=== PATIENT | female | born 1960 | race Caucasian/White ===

== ENCOUNTER 2019-10-24 08:19 | Outpatient (CLI) | payer BC, SELFPAY ==
--- NOTE | ~2019-10-24 | MM_ITS ---
EXAMINATION: MM screening [facility] BI w gabriella HISTORY: Screening TECHNIQUE: Craniocaudal and mediolateral oblique 3-D tomosynthesis images were obtained and synthetic 2-D images were generated. CAD analysis was submitted and interpreted. COMPARISON: Comparison to multiple prior studies sequentially, with oldest reviewed study dated 06/2013. BREAST PARENCHYMAL COMPOSITION: There are scattered areas of fibroglandular density. FINDINGS: The right breast is stable without evidence for malignancy. There are asymmetries in the up per aspect of the left breast, slightly more prominent than prior examinations. IMPRESSION: 1. Left breast asymmetries. 2. Additional mammographic views and possible breast ultrasound are recommended. BI-RADS Category 0: Incomplete: Needs additional imaging evaluation. Reviewed, dictated and finalized at location A. IMPRESSION: 1. Left breast asymmetries. 2. Additional mammographic views and possible breast ultrasound are recommended . BI-RADS Category 0: Incomplete: Needs additional imaging evaluation.
== END 2019-10-24 08:20 | disposition home or self-care (01) ==
LOC: ANHIMG 08:24
PROVIDERS: PCP Family Medicine; Visit Provider Obstetrics & Gynecology
DX: Z12.31 Encounter for screening mammogram for malignant neoplasm of breast (principal); R92.8 Other abnormal and inconclusive findings on diagnostic imaging of breast
CPT/HCPCS: 77063; 77067

== ENCOUNTER 2019-11-16 12:25 | Outpatient (CLI) | payer BC, SELFPAY ==
--- NOTE | ~2019-11-16 | MMUS_ITS ---
EXAMINATION: MM diagnostic mammo unilat LT, US breast LT limited HISTORY: Left breast mammographic asymmetry on 10/24/2019 screening mammogram TECHNIQUE: Additional 3-D tomosynthesis images of the left breast were performed and synthetic 2-D im ages were generated. CAD analysis was submitted and interpreted. High resolution upper outer and lowe r-outer quadrant left breast ultrasound was performed. COMPARISON: 10/24/2019 bilateral digital screening mammogram 10/11/2015 bilateral digital screening mammogram FINDINGS: MAMMOGRAPHIC FINDINGS: No reproducible mass is detected. No significant new or developing density or other significant canseco e since 09/27/2015 is evident. ULTRASOUND: No solid mass lesion or shadowing mass lesion is evident. IMPRESSION: 1. No mammographic evidence of malignancy 2. Routine mammographic screening in one year is recommended. BI-RADS Category 1: Negative Reviewed, dictated and finalized at location A. IMPRESSION: 1. No mammographic evidence of malignancy 2. Routine mammographic screening in one year is recommended. BI-RADS Category 1: Negative
== END 2019-11-16 12:26 | disposition home or self-care (01) ==
PROVIDERS: PCP Family Medicine; Visit Provider Obstetrics & Gynecology
DX: R92.8 Other abnormal and inconclusive findings on diagnostic imaging of breast (principal)
CPT/HCPCS: 76642; 77065

== ENCOUNTER → 2020-11-07 13:49 | Outpatient (CLI) | payer BC, SELFPAY ==
--- NOTE | ~2020-11-07 | XR_ITS ---
XR ankle LT min 3V DATE: 11/07/2020 14:11 INDICATION: Left ankle and foot pain TECHNIQUE: 4 views COMPARISON: None FINDINGS: There is mild soft tissue swelling. No fracture or dislocation of the ankle or disruption o f the ankle mortise. No periosteal reaction or bone destruction. IMPRESSION: Mild soft tissue swelling Reviewed, dictated and finalized at location A. IMPRESSION: Mild soft tissue swelling
== END ==
PROVIDERS: PCP Family Medicine; Visit Provider Physician Assistant
DX: M25.579 Pain in unspecified ankle and joints of unspecified foot (principal); M79.89 Other specified soft tissue disorders
CPT/HCPCS: 73610

== ENCOUNTER 2021-05-06 07:43 | Outpatient (CLI) | payer BC, SELFPAY ==
--- NOTE | ~2021-05-06 | MM_ITS ---
EXAMINATION: MM screening [facility] BI w gabriella HISTORY: Screening mammogram TECHNIQUE: Craniocaudal and mediolateral oblique 3-D tomosynthesis images were obtained and synthetic 2-D images were generated. CAD analysis was submitted and interpreted. COMPARISON: 11/16/2019, 10/24/2019, 03/08/2018 BREAST PARENCHYMAL COMPOSITION: There are scattered areas of fibroglandular density. FINDINGS: There is no evidence of suspicious mass, calcification, or architectural distortion to sugg est malignancy in either breast. There has been no suspicious interval change. IMPRESSION: 1. No mammographic evidence of malignancy. 2. Recommend routine screening mammography in one year. BI-RADS Category 2: Benign finding(s). Reviewed, dictated and finalized at location A.
== END 2021-05-06 07:44 | disposition home or self-care (01) ==
LOC: ANHIMG 07:46
PROVIDERS: PCP Family Medicine; Visit Provider Family Medicine
DX: Z12.31 Encounter for screening mammogram for malignant neoplasm of breast (principal)
CPT/HCPCS: 77063; 77067

== ENCOUNTER 2022-01-28 08:32 | Outpatient (CLI) | payer BC, SELFPAY ==
[2022-01-28 11:54] LABS: Kit Draw Collected
== END 2022-01-28 08:33 | disposition home or self-care (01) ==
PROVIDERS: PCP Family Medicine; Visit Provider Physician Assistant
DX: Z51.81 Encounter for therapeutic drug level monitoring (principal); Z79.899 Other long term (current) drug therapy; E78.2 Mixed hyperlipidemia; F34.1 Dysthymic disorder; M18.12 Unilateral primary osteoarthritis of first carpometacarpal joint, left hand
CPT/HCPCS: 36415

== ENCOUNTER 2022-04-23 13:28 | Outpatient (CLI) | payer BC, SELFPAY ==
--- NOTE | ~2022-04-23 | MMUS_ITS ---
EXAMINATION: MM diagnostic darren BI w gabriella, US breast LT limited HISTORY: Left breast pain from medial breast to left nipple. TECHNIQUE: ML, MLO and CC 3-D tomosynthesis images of both breasts were performed and synthetic 2-D i mages were generated. CAD analysis was submitted and interpreted. High resolution targeted left breas t ultrasound examination at area of clinical complaint was performed. COMPARISON: 05/06/2021 bilateral screening mammogram 11/12/2019 diagnostic left mammogram and limited left breast ultrasound examination 10/24/2019, 03/08/2018 bilateral screening mammogram examinations BREAST PARENCHYMAL COMPOSITION: There are scattered areas of fibroglandular density. FINDINGS: MAMMOGRAPHIC FINDINGS: No suspicious mass or architectural distortion, malignant calcification, skin thickening or retractio n or significant new or developing density is detected. ULTRASOUND: Ultrasound imaging at the area of clinical complaint at 7:00, 8:00, 9:00 and subareolar areas reveals no suspicious mass, shadowing, cyst or other significant sonographic abnormality. IMPRESSION: 1. No mammographic evidence of malignancy 2. Routine annual mammographic screening is recommended. BI-RADS Category 1: Negative Reviewed, dictated and finalized at location A. [employer] TALENT ACQUISITION IMPRESSION: 1. No mammographic evidence of malignancy 2. Routine annual mammographic screening is recommended. BI-RADS Category 1: Negative
== END 2022-04-23 13:29 | disposition home or self-care (01) ==
PROVIDERS: PCP Family Medicine; Visit Provider Family Medicine
DX: Z12.31 Encounter for screening mammogram for malignant neoplasm of breast (principal); N64.4 Mastodynia
CPT/HCPCS: 76642; 77062; 77066; G0279

== ENCOUNTER 2022-05-01 20:05 | Emergency (ER) | payer BC, SELFPAY ==
--- NOTE | ~2022-05-01 | CT_ITS ---
EXAMINATION: CT abdomen pelvis w con DATE: 05/01/2022 21:15 INDICATION: Umbilical pain, nausea, vomiting and bloating. TECHNIQUE: Computed tomography (CT) of the abdomen and pelvis was performed with 100 mL Omnipaque-350 intravenous contrast. Automated exposure control and iterative reconstruction technique were employe d. The dose-length product was 357.65 mGy-cm. COMPARISON: 09/19/2018 FINDINGS: Mild dependent atelectasis in the bilateral lower lobes. Heart size is normal. No pericardial or pleu ral effusion. There is prominent edematous wall thickening in the distal esophagus suggestive of esop hagitis which could be related to provided history of vomiting. Common bile duct is dilated to 10 mm and there is chronic mild intrahepatic biliary ductal dilation without evident obstructing stone or m ass in this likely related to prior cholecystectomy with surgical clips at the gallbladder fossa. Umu er is otherwise normal. Spleen, pancreas, bilateral adrenal glands and left kidney are normal. 8 mm c yst at the upper pole of the right kidney. Intestinal malrotation with the colon confined to the left side of the abdomen and pelvis and the small bowel in right central and right side of the abdomen an d pelvis. There is fluid throughout multiple loops of the proximal to mid small bowel without louis d ilation. There is gradual transition to relatively decompressed more distal small bowel with no trans ition point to suggest obstruction. No bowel wall thickening. There are scattered diverticula along t he colon without adjacent from pursuing to suggest diverticulitis. The appendix is not visualized and may be surgically absent with surgical clip near the cecum. No pericecal inflammatory change to sugg est acute appendicitis. Bladder is normal. The uterus is not identified and has likely been surgicall y resected. Minimal scattered ascites primarily the right lower quadrant and pelvis. No abscess or fr ee intraperitoneal gas. No pathologically enlarged abdominal or pelvic lymphadenopathy. Moderate lumb ar spondylosis. IMPRESSION: 1. Fluid-filled but not frankly dilated small bowel with small amount of likely reactive ascites sugg estive of an enteritis. 2. Likely congenital bowel malrotation. No obstruction. 3. Edematous wall thickening in the distal esophagus suggestive of esophagitis or potentially related to reported history of vomiting. Reviewed, dictated and finalized at location A. L [employer] IMPRESSION: 1. Fluid-filled but not frankly dilated small bowel with small amount of likely reactive ascites suggestive of an enteritis. 2. Likely congenital bowel malrotation. No obstruction. 3. Edematous wall thickening in the distal esophagus suggestive of esophagitis or potentially related to reported history of vomiting.
[2022-05-01 20:07] VITALS: BP 150/88; PULSE 101; RESP 20; TEMP 36.4; O2SAT 100
--- NOTE | 2022-05-01 20:18 | ECG_ITS ---
Measurements Intervals [place] Rate: 97 P: 25 SD: 154 QRS: -18 QRSD: 96 T: 29 QT: 349 QTc: 445 Interpretive Statements SINUS RHYTHM POSSIBLE LEFT ATRIAL ENLARGEMENT DELAYED PRECORDIAL R/S TRANSITION BORDERLINE T WAVE ABNORMALITY- ANTERIOR LEADS BORDERLINE ECG COMPARED TO ECG 05/27/2018 10:34:20 NO SIGNIFICANT CHANGES Electronically Signed On 05-01-2022 21:04:19 DANDY OPERATOR by Butch Koenig D.O.
[2022-05-01 20:32] LABS: Basophils Absolute Auto 0.1 K/mm3 (0.0-0.1); Basophils Percent Auto 0.7 % (0.2-1.2); Eosinophils Absolute Auto 0.2 K/mm3 (0-0.3); Eosinophils Percent Auto 1.8 % (0-4.4); Hematocrit 42.5 % (37.0-47.0); Hemoglobin 14.3 g/dL (12.0-15.0); Immature Granulocyte Absolute 0.04 K/mm3 (0.00-0.031); Immature Granulocyte Percent A 0.4 % (0-0.5); Lymphocytes Absolute Auto 2.04 K/mm3 (0.9-3.2); Mean Corpuscular HGB Conc 33.6 g/dl (32-36); Mean Corpuscular Hemoglobin 31.7 pg (26-34); Mean Corpuscular Volume 94.2 fl (80-100); Mean Platelet Volume 9.1 fl (7.4-10.4); Monocytes Absolute Auto 0.7 K/mm3 (0.1-0.6); Monocytes Percent Auto 6.8 % (2.6-8.5); Neutrophils Absolute Auto 7.7 K/mm3 (1.3-6.7); Neutrophils Percent Auto 71.3 % (45.5-73.1); Platelet Count Result 316 k/mm3 (150-375); Red Blood Count 4.51 M/mm3 (4.2-5.4); Red Cell Distribution Width 11.9 % (11.5-14.5); White Blood Count 10.7 K/mm3 (4.5-10.0)
[2022-05-01] MEDS: SODIUM CHLORIDE 0.9% IV 1,000 ML 999 ML IV CONT (20:46)
[2022-05-01] MEDS: PANTOPRAZOLE SODIUM IV 40 MG VIAL IV PUSH (20:46)
[2022-05-01] MEDS: ONDANSETRON INJ 4 MG/2 ML VIAL IV PUSH (20:47)
[2022-05-01 20:55] LABS: Alanine Aminotransferase 23 U/L (6-35); Albumin Level 5.3 g/dL (3.5-5.1); Alkaline Phosphatase 66 U/L (38-126); Anion Gap 10 mmol/L (8-16); Aspartate Amino Transferase 32 U/L (14-36); Bilirubin,Total 0.7 mg/dL (0.2-1.3); Blood Urea Nitrogen 14 mg/dL (7-17); Calcium 10.3 mg/dL (8.4-10.2); Carbon Dioxide 27 mmol/L (22-30); Chloride 98 mmol/L (98-107); Estimated CRCL calculation 93 ml/min; Estimated Glomerular Filt Rate > 60; Glucose 118 mg/dL (65-110); Lipase 50 U/L (23-300); Potassium 3.7 mmol/L (3.4-5.0); Sodium 135 mmol/L (137-145)
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
[2022-05-01 22:25] LABS: Appearance Urine Clear (Clear); Bilirubin Urine Negative (Negative); Blood Urine Negative (Negative); Color Urine Yellow (Yellow); Glucose Urine UA Negative (Negative); Ketones Urine 1+ mg/dL (Negative); Leukocyte Esterase Ur Negative LEU/UL (Negative); Nitrate Urine Negative (Negative); Protein Urine Negative (Negative); Urobilinogen Urine 0.2 mg/dL (<2.0)
[2022-05-01 22:53] LABS: Specific Grav Ur 1.081 (1.001-1.035)
[2022-05-01 22:57] LABS: Add Urine Microscopic? YES
[2022-05-01] MEDS: DICYCLOMINE HCL INJ 20 MG/2 ML VIAL IM (23:53)
[2022-05-02 02:40] VITALS: BP 141/77; PULSE 77; RESP 16; O2SAT 98
== END 2022-05-02 02:45 | disposition home or self-care (01) ==
PROVIDERS: Emergency Provider Emergency Medicine; PCP Family Medicine
DX: K52.9 Noninfective gastroenteritis and colitis, unspecified (principal)
CPT/HCPCS: 36415; 74177; 80053; 81001; 83690; 85025; 93005; 96361; 96372; 96374; 96375; 99283; C9113; J0500; J2405; J7030; Q9967

== ENCOUNTER 2022-05-05 12:30 | Outpatient (CLI) | payer BC, SELFPAY ==
--- NOTE | ~2022-05-05 | XR_ITS ---
EXAMINATION: XR abdomen/kub 1V DATE: 05/05/2022 13:07 INDICATION: Nonobstructive gastroenteritis and colitis TECHNIQUE: A supine view of the abdomen on 2 radiographs was obtained. COMPARISON: CT dated 05/01/2022 FINDINGS: Moderate amount of colonic stool in the left abdomen. Small amount of gas within a few loops of small bowel in the right abdomen. The pattern of bowel redemonstrates a congenital bowel malrotation as se en on the prior CT. No evident haustral fold thickening, pneumatosis or portal venous gas. Cholecyste ctomy clips in right upper quadrant and likely dropped clip in the central pelvis. Lung bases are holland ar. Heart size is normal. IMPRESSION: 1. No dilated bowel to suggest obstruction. Reviewed, dictated and finalized at location L.
[2022-05-05 13:18] LABS: Hematocrit 38.2 % (37.0-47.0); Hemoglobin 12.8 g/dL (12.0-15.0); Mean Corpuscular HGB Conc 33.5 g/dl (32-36); Mean Corpuscular Hemoglobin 31.2 pg (26-34); Mean Corpuscular Volume 93.2 fl (80-100); Mean Platelet Volume 9.3 fl (7.4-10.4); Platelet Count Result 320 k/mm3 (150-375); Red Cell Distribution Width 11.7 % (11.5-14.5); White Blood Count 4.7 K/mm3 (4.5-10.0)
[2022-05-05 13:34] LABS: CRP < 0.5 mg/dL (<1.0)
[2022-05-05 13:49] LABS: Erythrocyte Sedimentation Rate 16 mm/hr (0-20)
[2022-05-09 11:53] LABS: Tissue Transglutaminase IgG Ab <1.0 U/mL (<15.0)
[2022-05-09 13:33] LABS: Tissue Transglutaminase IgA Ab <1.0 U/mL (<15.0)
== END 2022-05-05 12:31 | disposition home or self-care (01) ==
PROVIDERS: PCP Family Medicine; Visit Provider Nurse Practitioner
DX: K52.9 Noninfective gastroenteritis and colitis, unspecified (principal); R10.9 Unspecified abdominal pain; R93.3 Abnormal findings on diagnostic imaging of other parts of digestive tract
CPT/HCPCS: 36415; 74018; 83516; 85027; 85652; 86140

== ENCOUNTER 2022-06-16 01:51 | Day surgery (SDC) | payer BC, SELFPAY ==
[2022-06-08 14:53] VITALS: BMI 23.5
[2022-06-16 07:27] VITALS: BP 129/80; PULSE 86; RESP 19; TEMP 36.3; O2SAT 99
[2022-06-16] MEDS: LACTATED RINGERS 1,000 ML 150 ML IV CONT (07:47)
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
--- NOTE | 2022-06-16 08:40 | SUR.OPER ---
EGD began at 826. Colonoscopy began at 08.
[2022-06-16 09:17] VITALS: BP 149/73; PULSE 77; RESP 21; O2SAT 95
[2022-06-16 09:27] VITALS: BP 139/90; PULSE 73; RESP 16; O2SAT 97
[2022-06-16 09:37] VITALS: BP 138/84; PULSE 64; RESP 21; O2SAT 98
== END 2022-06-16 09:54 | disposition home or self-care (01) ==
PROVIDERS: PCP Family Medicine; Visit Provider Internal Medicine Gastroenterology
PROC: 0DJ08ZZ Inspection of Upper Intestinal Tract, Via Natural or Artificial Opening Endoscopic (ICD-10-PCS; CPT 43235; principal; 2022-06-16 08:30)
DX: K57.30 Diverticulosis of large intestine without perforation or abscess without bleeding (principal); K64.8 Other hemorrhoids; R14.0 Abdominal distension (gaseous); R10.84 Generalized abdominal pain; K21.9 Gastro-esophageal reflux disease without esophagitis; Z87.19 Personal history of other diseases of the digestive system; Z87.891 Personal history of nicotine dependence
CPT/HCPCS: 45330; 43239; 88305; J2704; J7120

== ENCOUNTER 2023-04-29 14:47 | Outpatient (CLI) | payer BC, SELFPAY ==
--- NOTE | ~2023-04-29 | MM_ITS ---
EXAMINATION: MM screening [facility] BI w gabriella HISTORY: Screening mammogram TECHNIQUE: Craniocaudal and mediolateral oblique 3-D tomosynthesis images were obtained and synthetic 2-D images were generated. CAD analysis was submitted and interpreted. COMPARISON: 04/23/2022 diagnostic bilateral mammogram and limited left breast ultrasound examination 05/06/2021 bilateral screening mammogram BREAST PARENCHYMAL COMPOSITION: There are scattered areas of fibroglandular density. FINDINGS: There is no evidence of suspicious mass, calcification, or architectural distortion to sugg est malignancy in either breast. There has been no suspicious interval change. IMPRESSION: 1. No mammographic evidence of malignancy. 2. Recommend routine screening mammography in one year. BI-RADS Category 1: Negative Reviewed, dictated and finalized at location A. [employer]ING ASSISTANT
== END 2023-04-29 14:48 | disposition home or self-care (01) ==
PROVIDERS: PCP Family Medicine; Visit Provider Family Medicine
DX: Z12.31 Encounter for screening mammogram for malignant neoplasm of breast (principal)
CPT/HCPCS: 77063; 77067

== ENCOUNTER 2023-06-11 08:13 | Outpatient (CLI) | payer BC, SELFPAY ==
[2023-06-11 19:25] LABS: Alanine Aminotransferase 19 U/L (6-35); Albumin Level 4.6 g/dL (3.5-5.1); Alkaline Phosphatase 53 U/L (38-126); Anion Gap 4 mmol/L (4-12); Aspartate Amino Transferase 45 U/L (14-36); Bilirubin,Total 0.4 mg/dL (0.2-1.3); Blood Urea Nitrogen 16 mg/dL (7-17); Calcium 9.5 mg/dL (8.4-10.2); Carbon Dioxide 30 mmol/L (22-30); Chloride 103 mmol/L (98-107); Cholesterol 238 mg/dL (0-200); Estimated Glomerular Filt Rate > 60; Glucose 82 mg/dL (65-110); HDL Direct 75 mg/dL; Potassium 4.6 mmol/L (3.4-5.0); Sodium 137 mmol/L (137-145); Triglycerides 93 mg/dL (<150)
[2023-06-11 19:32] LABS: Basophils Absolute Auto 0.1 K/mm3 (0.0-0.1); Basophils Percent Auto 1.1 % (0.2-1.2); Eosinophils Absolute Auto 0.2 K/mm3 (0-0.3); Eosinophils Percent Auto 3.7 % (0-4.4); Hematocrit 43.9 % (37.0-47.0); Immature Granulocyte Absolute 0.01 K/mm3 (0.00-0.031); Immature Granulocyte Percent A 0.2 % (0-0.5); Lymphocytes Absolute Auto 1.36 K/mm3 (0.9-3.2); Lymphocytes Percent Auto 25.2 % (18.3-44.2); Mean Corpuscular HGB Conc 31.9 g/dl (32-36); Mean Corpuscular Hemoglobin 31.6 pg (26-34); Mean Corpuscular Volume 99.1 fl (80-100); Mean Platelet Volume 9.8 fl (7.4-10.4); Monocytes Absolute Auto 0.5 K/mm3 (0.1-0.6); Monocytes Percent Auto 9.6 % (2.6-8.5); Neutrophils Absolute Auto 3.3 K/mm3 (1.3-6.7); Neutrophils Percent Auto 60.2 % (45.5-73.1); Platelet Count Result 336 k/mm3 (150-375); Red Blood Count 4.43 M/mm3 (4.2-5.4); Red Cell Distribution Width 11.9 % (11.5-14.5); White Blood Count 5.4 K/mm3 (4.5-10.0)
[2023-06-11 19:35] LABS: LDL Cholesterol Direct 125 mg/dL
== END 2023-06-11 08:14 | disposition home or self-care (01) ==
LOC: ANHGOSHLAB 08:15
PROVIDERS: PCP Family Medicine; Visit Provider Family Medicine
DX: E78.5 Hyperlipidemia, unspecified (principal)
CPT/HCPCS: 36415; 80053; 80061; 85025

== ENCOUNTER 2023-06-22 08:37 | Outpatient (CLI) | payer BC, SELFPAY ==
--- NOTE | ~2023-06-22 | CT_ITS ---
CT of the Abdomen and Pelvis: Indication: Abdominal pain, incomplete colonoscopy Technique: 2.5 mm axial scans were obtained through the abdomen and pelvis following intravenous adm inistration of 100 cc of Omnipaque 350. Dose reduction technique was used on this scan by utilizing a utomated exposure control and iterative reconstruction technique. The dose-length product (DLP) was 2 69.07 mGy-cm. COMPARISON: 05/01/2022 Findings: Scans through the lung bases are unremarkable. The liver, spleen, pancreas, adrenals and kidneys are within normal limits. Cholecystectomy clips are present. No evidence of aortic aneurysm. No lymphadenopathy. No bowel obstruction or bowel wall thickening. Congenital malrotation of bowel noted. No acute inflam matory process seen. Prominent stool suggests constipation. Images through the pelvis were performed. Urinary bladder unremarkable. No pelvic mass seen. No ascit es. Impression: No acute abnormality seen. Congenital malrotation of bowel, with large bowel on the left side of the abdomen, small bowel on the right side, and abnormally positioned ligament of Treitz. Constipation. Reviewed, dictated and finalized at location . Impression: No acute abnormality seen. Congenital malrotation of bowel, with large bowel on the left side of the abdom en, small bowel on the right side, and abnormally positioned ligament of Treitz . Constipation.
== END 2023-06-22 08:38 | disposition home or self-care (01) ==
LOC: ANHIMG 08:41
PROVIDERS: PCP Family Medicine; Visit Provider Nurse Practitioner
DX: R14.0 Abdominal distension (gaseous) (principal); R10.11 Right upper quadrant pain; K59.00 Constipation, unspecified
CPT/HCPCS: 74177; Q9967

== ENCOUNTER 2023-07-08 07:55 | Outpatient (CLI) | payer BC, SELFPAY ==
--- NOTE | ~2023-07-08 | XR_ITS ---
EXAMINATION: XR_ENEMABAC_CR DATE: 07/08/2023 09:59 INDICATION: Right upper quadrant abdominal pain. Incomplete colonoscopy. TECHNIQUE: A inorganic chemistry professor radiograph was obtained. A catheter was inserted into the patient's rectum. Contra st was infused by gravity. Gas was infused by hand pump. Fluoroscopic spot images and conventional ra diographs were obtained. Fluoroscopy exposure time was 4.4 minutes. A total of 59 fluoroscopic spot i mages and 13 overhead radiographs were obtained. Total DAP was 77.237 mGycm^2 COMPARISON: None. FINDINGS: Bowel malrotation with the colon confined to the pelvis and left abdomen. There is a tortuous course of the colon in the left abdomen which was longer than anticipated resulting resulting in the proxima lmost segment of colon remaining unopacified with contrast despite significant amount of residual con trast remaining within the mid colon. The amount of residual contrast and superimposition of multiple loops of colon mildly decreases sensitivity. There is mild scattered diverticulosis along the colon. No evident strictures, masses/polyps or other mucosal irregularities identified. Cholecystectomy cli ps in right upper quadrant. Dropped clip in the pelvis. IMPRESSION: 1. Bowel malrotation with the colon confined to the pelvis and left abdomen which along with tortuosi ty of the course of colon results in retention of a greater than optimal amount of contrast within th e mid to distal colon despite there being insufficient contrast to completely opacified the proximal most colon. 2. Multiple diverticula without evidence of strictures, polyps, mass or other mucosal irregularities in the distal three fourths of the colon. Reviewed, dictated and finalized at location A. IMPRESSION: 1. Bowel malrotation with the colon confined to the pelvis and left abdomen whi ch along with tortuosity of the course of colon results in retention of a great er than optimal amount of contrast within the mid to distal colon despite there being insufficient contrast to completely opacified the proximal most colon. 2. Multiple diverticula without evidence of strictures, polyps, mass or other m ucosal irregularities in the distal three fourths of the colon.
== END 2023-07-08 07:56 | disposition home or self-care (01) ==
PROVIDERS: PCP Family Medicine; Visit Provider Nurse Practitioner
DX: R10.11 Right upper quadrant pain (principal); R14.0 Abdominal distension (gaseous)
CPT/HCPCS: 74280

== ENCOUNTER 2023-08-09 08:11 | Outpatient (CLI) | payer BC, SELFPAY ==
[2023-08-09 13:42] LABS: Alanine Aminotransferase 26 U/L (6-35); Albumin Level 4.5 g/dL (3.5-5.1); Alkaline Phosphatase 60 U/L (38-126); Aspartate Amino Transferase 60 U/L (14-36); Bilirubin,Total 0.9 mg/dL (0.2-1.3)
[2023-08-09 14:34] LABS: Hepatitis B Surface Antigen Negative (Negative)
[2023-08-09 14:40] LABS: HAV RESULT Negative (Negative); Hepatitis B Core IgM Result Negative (Negative)
[2023-08-09 14:51] LABS: Hepatitis C Virus Antibody Negative (Negative)
== END 2023-08-09 08:12 | disposition home or self-care (01) ==
LOC: ANHGOSHLAB 08:12
PROVIDERS: PCP Family Medicine; Visit Provider Family Medicine
DX: R10.11 Right upper quadrant pain (principal); R10.9 Unspecified abdominal pain; R74.8 Abnormal levels of other serum enzymes
CPT/HCPCS: 36415; 80074; 80076

== ENCOUNTER 2023-08-11 14:16 | Outpatient (CLI) | payer BC, SELFPAY ==
[2023-08-11 14:56] LABS: INR 0.9; Prothrombin Time 12.3 Seconds (11.1-14.7)
[2023-08-11 16:11] LABS: Hepatitis B Surface Antigen Negative (Negative)
[2023-08-11 16:17] LABS: HAV RESULT Negative (Negative); Hepatitis B Core IgM Result Negative (Negative)
[2023-08-11 16:29] LABS: Hepatitis C Virus Antibody Negative (Negative)
[2023-08-11 17:56] LABS: Iron 123 ug/dL (37-170)
[2023-08-11 18:05] LABS: Percent Iron Saturation 44 % (20-50)
[2023-08-12 11:53] LABS: Alpha-1-Antitrypsin, QN 134 mg/dL (83-199)
[2023-08-16 07:22] LABS: GGT 30
[2023-08-16 11:29] LABS: Alpha Fetoprotein Tumor Marker 10.7
[2023-08-17 22:59] LABS: LKM 1 Antibody <=20.0 U (<=20.0)
[2023-08-18 22:02] LABS: Actin Antibody (IgG) <20 U (<20)
[2023-08-23 15:24] LABS: Mitochondrial (M2) Ab (IgG) <20.0 U
[2023-08-31 07:33] LABS: Fibrosis Score 0.09; Fibrosis Stage F0; GGT 30; Haptoglobin 88
[2023-08-31 07:34] LABS: ALT 19; Alpha-2-Macroglobulin 141; Apolipoprotein A1 166; Necroinflammat Act Grade A0; Total Bilirubin 0.3
== END 2023-08-11 14:17 | disposition home or self-care (01) ==
LOC: ANHLAB 14:18
PROVIDERS: PCP Family Medicine; Visit Provider Nurse Practitioner
DX: R74.01 Elevation of levels of liver transaminase levels (principal); K74.60 Unspecified cirrhosis of liver
CPT/HCPCS: 36415; 80074; 81596; 82103; 82105; 82728; 82977; 83520; 83540; 83550; 85610; 86038; 86039; 86364; 86376

== ENCOUNTER 2023-08-18 09:18 | Outpatient (CLI) | payer BC, SELFPAY ==
--- NOTE | ~2023-08-18 | US_ITS ---
EXAMINATION: US abdomen limited DATE: 08/18/2023 09:50 INDICATION: Elevation of levels of liver transaminases. TECHNIQUE: Multiple grayscale and Doppler ultrasound images of the abdomen were obtained. COMPARISON: CT abdomen and pelvis 06/22/2023 FINDINGS: The visualized portions of the head, body, and tail of the pancreas are normal. The liver i s normal without focal lesion. No liver surface nodularity. There is normal flow in main portal vein. The gallbladder is absent. The common duct is normal and measures 10 mm. IMPRESSION: 1. Normal right upper quadrant ultrasound status post cholecystectomy. Reviewed, dictated and finalized at location A.
== END 2023-08-18 09:19 ==
LOC: MICIMG 09:21
PROVIDERS: PCP Family Medicine; Visit Provider Nurse Practitioner
DX: R74.01 Elevation of levels of liver transaminase levels (principal)
CPT/HCPCS: 76705

== ENCOUNTER 2023-09-13 06:40 | Outpatient (CLI) | payer BC, SELFPAY ==
--- NOTE | ~2023-09-13 | MR_ITS ---
EXAMINATION: MR abdomen wo/w con DATE: 09/13/2023 07:42 INDICATION: Elevated AFP. TECHNIQUE: Magnetic resonance imaging (MRI) of the abdomen was performed without and with 14 mL Multi nena intravenous contrast. Sequences included coronal T2-weighted SS-FSE, coronal and axial FS 2D-F IESTA, axial STIR FSE, axial T2-weighted SS-FSE, axial T2-weighted FS SS-FSE, axial diffusion-weighte d SE, axial dual-echo T1-weighted FSPGR, and axial and coronal T1-weighted LAVA. Postcontrast axial T 1-weighted LAVA images were obtained in a time course. Postcontrast coronal T1-weighted LAVA images w ere obtained. COMPARISON: None. FINDINGS: Mild discoid atelectasis at the lingula. Heart size is normal. No pericardial or pleural effusion. Co mmon bile duct is mildly dilated to 8 mm which is within normal limits post cholecystectomy with susc eptibility artifact associated with cholecystectomy clips at the gallbladder fossa. Minimal central i ntrahepatic biliary ductal dilation also likely related to prior cholecystectomy. No hepatic parenchy mal lesions identified. Pancreas, spleen, bilateral adrenal glands and left kidney are normal. 8 mm c yst in the upper pole the right kidney. Again there is intestinal malrotation with the colon in the l eft abdomen and the small bowel in the right abdomen. There is suggestion of a likely colonic diverti culosis but without adjacent from trace stranding to suggest diverticulitis. Midline surgical scar al hope the anterior abdominal wall. No pathologically enlarged abdominal or upper pelvic lymphadenopathy . T1 hyperintense fat saturating hemangioma at T11. IMPRESSION: 1. Normal intra and extra hepatic biliary ductal dilation likely related to prior cholecystectomy. No hepatic parenchymal lesions identified. 2. Likely congenital intestinal malrotation. Reviewed, dictated and finalized at location A. IMPRESSION: 1. Normal intra and extra hepatic biliary ductal dilation likely related to yoanna or cholecystectomy. No hepatic parenchymal lesions identified. 2. Likely congenital intestinal malrotation.
== END 2023-09-13 06:41 | disposition home or self-care (01) ==
PROVIDERS: PCP Family Medicine; Visit Provider Nurse Practitioner
DX: R93.2 Abnormal findings on diagnostic imaging of liver and biliary tract (principal); R77.2 Abnormality of alphafetoprotein; R74.01 Elevation of levels of liver transaminase levels
CPT/HCPCS: 74183; A9577

== ENCOUNTER 2023-11-18 08:03 | Outpatient (CLI) | payer BC, SELFPAY ==
[2023-11-18 15:40] LABS: Alanine Aminotransferase 16 U/L (6-35); Albumin Level 4.6 g/dL (3.5-5.1); Alkaline Phosphatase 52 U/L (38-126); Anion Gap 8 mmol/L (4-12); Aspartate Amino Transferase 45 U/L (14-36); Bilirubin,Total 0.5 mg/dL (0.2-1.3); Blood Urea Nitrogen 15 mg/dL (7-17); Calcium 9.5 mg/dL (8.4-10.2); Carbon Dioxide 27 mmol/L (22-30); Chloride 102 mmol/L (98-107); Estimated Glomerular Filt Rate > 60; Glucose 74 mg/dL (65-110); Potassium 4.3 mmol/L (3.4-5.0); Sodium 137 mmol/L (137-145)
[2023-11-18 19:00] LABS: Hepatitis B Surface Antigen Negative (Negative)
[2023-11-18 19:06] LABS: HAV RESULT Negative (Negative); Hepatitis B Core IgM Result Negative (Negative)
[2023-11-18 19:23] LABS: Hepatitis C Virus Antibody Negative (Negative)
== END 2023-11-18 08:04 | disposition home or self-care (01) ==
LOC: ANHGOSHLAB 08:05
PROVIDERS: PCP Family Medicine; Visit Provider Family Medicine
DX: R74.01 Elevation of levels of liver transaminase levels (principal); R77.2 Abnormality of alphafetoprotein
CPT/HCPCS: 36415; 80053; 80074; 82248; 84443

== ENCOUNTER 2024-05-01 07:09 | Outpatient (CLI) | payer BC, SELFPAY ==
--- NOTE | ~2024-05-01 | MM_ITS ---
EXAMINATION: MM screening darren BI w gabriella HISTORY: Screening mammogram TECHNIQUE: Craniocaudal and mediolateral oblique 3-D tomosynthesis images were obtained and synthetic 2-D images were generated. CAD analysis was submitted and interpreted. COMPARISON: 04/29/2023, 04/23/2022, 05/06/2021, 10/24/2019 BREAST PARENCHYMAL COMPOSITION:Not Dense. There are scattered areas of fibroglandular density. FINDINGS: No suspicious mass, calcification, or architectural distortion are identified in either [place] ast to suggest malignancy. There has been no suspicious interval change. IMPRESSION: No mammographic evidence of malignancy. Recommend routine screening mammography in one year. BI-RADS Category 1: Negative Reviewed, dictated and finalized at location .
--- OUTSIDE RECORDS SUMMARY | 2024-05-01 07:14 | XMS_ITS | Referral Summary ---
Author Organization [facility] [place] [address] Address [address] [place] [address] Care Team Providers Care Hearing Therapy Teacher Name Role Phone Jayy Marquez MD Primary Care Provider [phone] Encounters Date Type Department Care Team Description 02/20/2024 4:30 PM SALES SERVICE TECHNICIAN Office Visit [facility] [place] [address] [place] [address] Kristina Parrish, ASHLY Viral URI with cough (Primary Dx); Acute serous otitis media of left ear, recurrence not specified; Bilateral impacted cerumen from Last 3 Months Allergies No known active allergies Medications HYDROcodone-ac etaminophen (NORCO) 7.5-325 mg per tabletIndicati ons:Pain Take 1 tablet by mouth every 6 (six) hours as needed for pain 12 tablet 1 Active meloxicam (MOBIC) 7.5 mg tablet Take 1 tablet (7.5 mg total) by mouth daily 2 Active nortriptyline (PAMELOR) 25 mg capsule Take 1 capsule (25 mg total) by mouth daily 2 Active estradioL (ESTRACE) 0.01 % (0.1 mg/gram) vaginal cream INSERT 1/2 TO 1 GRAM INTRAVAGINALLY THREE TIMES WEEKLY FOR 4 WEEKS NEEDED. 2 Active omeprazole (PriLOSEC) 20 mg capsule Take 1 capsule (20 mg total) by mouth daily 2 Active benzonatate (TESSALON) 200 mg capsuleIndicat ions:Viral URI with cough Take 1 capsule (200 mg total) by mouth 3 (three) times a day as needed for cough 42 capsule 4 Active fluticasone propionate (FLONASE) 50 mcg/actuation nasal sprayIndicatio ns:Acute serous otitis media of left ear, recurrence not specified Administer 2 sprays into each nostril daily 1 each 4 Active Active Problems No known active problems Immunizations Immunization Administration Dates Next Due Tdap 10/07/2020 Social History Tobacco Use Types Packs/Day Years Used Date Smoking Tobacco: Former Smokeless Tobacco: Never Alcohol Use Standard Drinks/Week Comments Yes 0 (1 standard drink = 0.6 oz pur e alcohol) frequently Comments No Sex and Gender Information Value Date Recorded Sex Assigned at Not on file Legal Sex Female 7:26 PM SALES SERVICE TECHNICIAN Gender Identity Not on file Sexual Orientation Not on file Last Filed Vital Signs Vital Sign Reading Time Taken Comments Blood Pressure 138/84 02/20/2024 4:23 PM SALES SERVICE TECHNICIAN Pulse 96 02/20/2024 4:23 PM SALES SERVICE TECHNICIAN Temperature 36.6 C (97.8 F) 02/20/2024 4:23 PM SALES SERVICE TECHNICIAN Respiratory Rate 18 02/20/2024 4:23 PM SALES SERVICE TECHNICIAN Oxygen Saturation 98% 02/20/2024 4:23 PM SALES SERVICE TECHNICIAN Inhaled Oxygen Concentration - - Weight 68 kg (150 lb) 02/20/2024 4:23 PM SALES SERVICE TECHNICIAN Height 165.1 cm (5' 5 ) 02/20/2024 4:23 PM SALES SERVICE TECHNICIAN Body Mass Index 24.96 02/20/2024 4:23 PM SALES SERVICE TECHNICIAN Plan of Treatment Not on file Procedures Procedure Name Priority Date/Time Associated Diagnosis Comments POC INFLUENZA A/B, COVID-19 ANTIGEN Routine 02/20/2024 4:45 PM SALES SERVICE TECHNICIAN Viral URI with cough [place] REMOVAL IMPACTED CERUMEN INSTRUMENTATION UNILAT Routine 02/20/2024 4:30 PM SALES SERVICE TECHNICIAN Bilateral impacted cerumen COLONOSCOPY 05/16/2013 12:00 AM CDT from Last 3 Months or Most Recently Relevant to Health Maintenance Results * POC Influenza A/B, COVID-19 antigen (02/20/2024 4:45 PM SALES SERVICE TECHNICIAN) Influenza A Ag, POC Negative Negative [facility] Influenza B Ag, POC Negative Negative [facility] COVID-19 Ag POC Presumptive Negative Presumptive Negative, Invalid [facility] Nasal 02/20/2024 4:45 PM SALES SERVICE TECHNICIAN Kristina Parrish NP POINT OF CARE TEST ORDERABLES Fi nal Result [facility] [address] [place] [address], [facility] * [place] REMOVAL IMPACTED CERUMEN INSTRUMENTATION UNILAT (02/20/2024 4:30 PM SALES SERVICE TECHNICIAN) Narrative Kristina Parrish NP - 02/20/2024 4:30 PM SALES SERVICE TECHNICIAN Kristina Parrish NP 02/20/2024 4:57 PM Ear Cerumen Removal Performed by: Kristina Parrish NP Authorized by: Kristina Parrish NP Consent Given by: Patient Verbal consent obtained: Yes Written consent obtained: Yes Risks, alternatives, and patient questions discussed: Yes Location: Bilateral L ear cerumen impacted?: Yes L ear method of removal: Instrumentation L ear instrumentation: Curette L ear magnification: Otoscope R ear cerumen impacted?: Yes R ear method of removal: Instrumentation R ear instrumentation: Curette R ear magnification: Otoscope Inspection: TM intact Hearing quality: Normal Patient tolerance: Patient tolerated the procedure well with no immediate complications Procedure terminated: Procedure terminated at patient's request Kristina Parrish CAMPUS SAFETY OFFICER IN CLINIC/BEDSIDE ORDERABLES Fin al Result * COLONOSCOPY (05/16/2013 12:00 AM CDT) Anatomical Region Laterality Modality Other Narrative 05/16/2013 12:00 AM CDT Ordered by an unspecified provider. Procedure Note ProviderAdeola MD - 05/16/2013 12:00 AM CDT PROCEDURE REPORT Patient: AB SANTOS Account: [id number] Room No: : 1960 Patient Type: SDS Attend.: Jose Alejandro Collaoz M.D. Admit Date: 05/16/2013 Dict.: Jose Alejandro Collazo M.D. Disch. Date: 05/16/2013 NAME OF PROCEDURE: Colonoscopy. DATE OF PROCEDURE: 05/16/13. REFERRED BY: Dr. Jayy Marquez. PREVIOUS PROCEDURE: None. X-RAYS: None. HISTORY AND PHYSICAL EXAM: The patient is a 53-year-old white femalewith history of generalized abdominal pain and history of diverticulitis. Sheis referred now for colonoscopy and screening exam. She notes no familyhistory of colorectal cancer. There has been no known bleeding. No previous colorectal disease other than possible diverticulitis. Patient, however,has had a splenic injury in the past. She apparently required surgery for thesame. Physical exam today is that of well-developed, [id number]-obmi-old female in no acute distress. She is nonicteric. Her lungs were clear.Heart was regular. GI was soft and supple without point tenderness orperitoneal signs. No obstructive sounds and no succussion splash. Extremitiesshowed no calf pain, cords or edema. PREPROCEDURE DIAGNOSIS: 1. Diffuse abdominal pain with history of diverticulitis statuspost antibiotic therapy. 2. History of previous splenic injury with surgery, but not resectedor removed. 3. Screening colonoscopy in a 53-year-old female. PHYSICIAN: Jose Alejandro Collazo M.D. INSTRUMENT USED: Olympus video endoscope. MEDICATIONS: Per anesthesia. FINDINGS: Colonoscope was introduced and passed to the cecum. Thepatient tolerated the procedure well. There were no complications. On withdrawalof the colonoscope, the mucosa appeared normal with normal vascular pattern.The colon itself was somewhat contorted and twisted. There was once againno mucosal abnormalities present. The remainder of the cecum, right,transverse and left colons were normal. In the left and rectosigmoid, there weremultiple diverticula, but no evidence of diverticulitis. No polys and no massesonce again were noted. The remainder of the left, rectosigmoid and rectumwere normal. Retroflexed view of the internal anal area showed small tomoderate internal hemorrhoidal tissue. Perianal exam showed no perianal diseaseand no rectal masses. COMPLICATIONS: None. POSTPROCEDURE DIAGNOSES: 1. Normal screening colonoscopy to cecum with a withdrawal time of20 minutes. Preparation was excellent. 2. Diverticulosis without evidence of diverticulitis at thissetting. 3. Somewhat contorted and twisted colon, but otherwise normal. POSTPROCEDURE ORDERS: 1. Post-sedation instructions. 2. High fiber diet. 3. [place] [employer] screening recommendations for colorectal disease with repeat colonoscopy in 10 years. 4. Plus/minus small bowel series to search for evidence of entrapmentif not done. 5. Follow up with Dr. Marquez. 6. Follow up in my office will be on a p.r.n. basis. Jose Alejandro Collazo M.D. CHUY/ TD: 05/17/2013 13:54 CC: Dr. Jayy Marquez Authenticated by Jose Alejandro Collazo MD On 05/22/2013 10:26:40 AM Historical Provider ENDOSCOPY PROCEDURES Yin l Result from Last 3 Months or Most Recently Relevant to Health Maintenance Insurance [facility] [place] PPO [place] Care Teams Hearing Therapy Teacher Relationship Specialty Start Date End Date Jayy Marquez MD PCP - General 10/07/20
--- OUTSIDE RECORDS SUMMARY | 2024-05-01 07:14 | XMS_ITS | Clinical Summary ---
Author [place] [facility] [place] [address] Address [address] [place] [address] Care Team Providers Care Bodywork Therapist Name Role Phone Jayy Marquez MD Primary Care Provider [phone] Allergies No known active allergies Medications HYDROcodone-ac [...] Active Active Problems No known active problems Encounters Date Type Department Care Team Description 02/20/2024 4:30 PM LINE INSTALLER REPAIRER Office Visit [facility] [place] [address] [place] [address] Kristina Parrish, ASHLY Viral URI with cough (Primary Dx); Acute serous otitis media of left ear, recurrence not specified; Bilateral impacted cerumen from Last 3 Months Immunizations Immunization Administration Dates Next Due Tdap 10/07/2020 Social History Tobacco Use Types Packs/Day Years Used Date Smoking Tobacco: Former Smokeless Tobacco: Never Alcohol Use Standard Drinks/Week Comments Yes 0 (1 standard drink = 0.6 oz pur e alcohol) frequently Comments No Sex and Gender Information Value Date Recorded Sex Assigned at Not on file Legal Sex Female 7:26 PM LINE INSTALLER REPAIRER Gender Identity Not on file Sexual Orientation Not on file Obstetrics History Last Filed Vital Signs Vital Sign Reading Time Taken Comments Blood Pressure 138/84 02/20/2024 4:23 PM LINE INSTALLER REPAIRER Pulse 96 02/20/2024 4:23 PM LINE INSTALLER REPAIRER Temperature 36.6 C (97.8 F) 02/20/2024 4:23 PM LINE INSTALLER REPAIRER Respiratory Rate 18 02/20/2024 4:23 PM LINE INSTALLER REPAIRER Oxygen Saturation 98% 02/20/2024 4:23 PM LINE INSTALLER REPAIRER Inhaled Oxygen Concentration - - Weight 68 kg (150 lb) 02/20/2024 4:23 PM LINE INSTALLER REPAIRER Height 165.1 cm (5' 5 ) 02/20/2024 4:23 PM LINE INSTALLER REPAIRER Body Mass Index 24.96 02/20/2024 4:23 PM LINE INSTALLER REPAIRER Plan of Treatment Health Maintenance Due Date Last Done Comments Breast Cancer Screening-Mammogram 1960 Depression Screening 1960 Hepatitis C Screening 1960 Hepatitis B Screening 1979 Regular Well Visit/Exam 18-64 1979 Zoster Vaccine (1 of 2) 2011 Colon Cancer Screening-Colonoscopy 05/17/2023 05/16/2013 Covid-19 Vaccine ( season) 2023 05/04/2020, 04/07/2020 Influenza Vaccine (#1) 2023 , 11/04/2018, 11/29/2017, Additional history exists DTaP/Tdap/Td Vaccine (2 - Td or Tdap) 10/07/2030 10/07/2020 Pneumococcal vaccine <65 Aged Out No longer eligible based on patient's age to complete this topic Procedures Procedure Name Priority Date/Time Associated Diagnosis Comments POC INFLUENZA A/B, COVID-19 ANTIGEN Routine 02/20/2024 4:45 PM LINE INSTALLER REPAIRER Viral URI with cough [place] REMOVAL IMPACTED CERUMEN INSTRUMENTATION UNILAT Routine 02/20/2024 4:30 PM LINE INSTALLER REPAIRER Bilateral impacted cerumen COLONOSCOPY 05/16/2013 12:00 AM CDT from Last 3 Months or Most Recently Relevant to Health Maintenance Results * POC Influenza A/B, COVID-19 antigen (02/20/2024 4:45 PM LINE INSTALLER REPAIRER) Influenza A Ag, POC Negative Negative [facility] Influenza B Ag, POC Negative Negative [facility] COVID-19 Ag POC Presumptive Negative Presumptive Negative, Invalid [facility] Nasal 02/20/2024 4:45 PM LINE INSTALLER REPAIRER Kristina Parrish NP POINT OF CARE TEST ORDERABLES Fi nal Result [facility] [address] [place] [address], [facility] * [place] REMOVAL IMPACTED CERUMEN INSTRUMENTATION UNILAT (02/20/2024 4:30 PM LINE INSTALLER REPAIRER) Narrative Kristina Parrish NP - 02/20/2024 4:30 PM LINE INSTALLER REPAIRER Kristina Parrish NP 02/20/2024 4:57 PM Ear [...] Procedure terminated: Procedure terminated at patient's request us Kristina Parrish NP IN CLINIC/BEDSIDE ORDERABLES Fin al Result * COLONOSCOPY (05/16/2013 12:00 AM CDT) Anatomical Region Laterality Modality Other Narrative 05/16/2013 12:00 AM CDT Ordered by an unspecified provider. Procedure Note ProviderAdeola MD - 05/16/2013 12:00 AM CDT PROCEDURE REPORT Patient: AB SANTOS Account: [id number] Room No: : 1960 Patient Type: SDS Attend.: Jose Alejandro Collazo M.D. Admit Date: 05/16/2013 Dict.: Jose Alejandro [...] Physical exam today is that of well-developed, [id number]-cujr-old female in no acute distress. She is [...] Post-sedation instructions. 2. High fiber diet. 3. [employer] [employer] screening recommendations for colorectal disease [...] Alejandro Collazo MD On 05/22/2013 10:26:40 AM us Historical Provider ENDOSCOPY PROCEDURES Yin l Result from Last 3 Months or Most Recently Relevant to Health Maintenance Insurance [employer] [place] Care Teams Bodywork Therapist Relationship Specialty Start Date End Date Jayy Marquez MD PCP - General 10/07/20
== END 2024-05-01 07:10 | disposition home or self-care (01) ==
LOC: ANHIMG 07:11
PROVIDERS: PCP Family Medicine; Visit Provider Family Medicine
DX: Z12.31 Encounter for screening mammogram for malignant neoplasm of breast (principal)
CPT/HCPCS: 77063; 77067

== ENCOUNTER 2024-08-23 08:38 | Outpatient (CLI) | payer BC, SELFPAY ==
[2024-08-23 13:41] LABS: Thyroid Stimulating Hormone 4.090 uIU/mL (0.465-4.680)
== END 2024-08-23 08:39 | disposition home or self-care (01) ==
LOC: ANHGOSHLAB 08:39
PROVIDERS: PCP Family Medicine; Visit Provider Family Medicine
DX: E03.9 Hypothyroidism, unspecified (principal)
CPT/HCPCS: 36415; 84436; 84443

== ENCOUNTER 2024-11-27 15:43 | Outpatient (CLI) | payer BC, SELFPAY ==
--- NOTE | ~2024-11-27 | XR_ITS ---
EXAMINATION: XR hand LT min 3V, 11/27/2024 15:54 CDT HISTORY: M65.332 - Trigger finger, left middle finger COMPARISON: No comparisons available. Findings: The fifth digit is held in flexion, no fracture or dislocation identified. Moderate degenerative changes of the distal interphalangeal joints with severe degenerative changes of the first metacarpal carpal joint with small erosions. Soft tissues unremarkable. Impression: No acute fracture or malalignment. Reviewed, dictated and finalized at location P. Impression: No acute fracture or malalignment.
--- OUTSIDE RECORDS SUMMARY | 2024-11-27 16:09 | XMS_ITS | Clinical Summary ---
Author Organization [facility] [place] [address] Address [address] [place] [address] Care Team Providers Care Payroll Associate Name Role Phone Jayy Marquez MD Primary Care Provider [phone] [phone] Allergies No known active allergies Medications estradioL (ESTRACE) 0.01 % (0.1 mg/gram) vaginal cream INSERT 1/2 TO 1 GRAM INTRAVAGINALLY THREE TIMES WEEKLY FOR 4 WEEKS NEEDED. 2 Active valACYclovir (VALTREX) 500 mg tablet Take 1 tablet (500 mg total) by mouth daily 5 Active dicyclomine (BENTYL) 10 mg capsule Take 1 capsule (10 mg total) by mouth 3 (three) times a day 5 Active nortriptyline (PAMELOR) 25 mg capsuleIndicat ions:depressio n Take 1 capsule (25 mg total) by mouth daily 30 capsule 5 Active atorvastatin (LIPITOR) 40 mg tablet Take 1 tablet (40 mg total) by mouth nightly 30 tablet 5 Active Active Problems Problem Noted Date Diagnosed Date Tingling 07/23/2024 Depression 07/23/2024 TIA (transient ischemic attack) 07/23/2024 IBS (irritable bowel syndrome) 07/23/2024 Immunizations Immunization Administration Dates Next Due Tdap 10/07/2020 Medical History Medical History Date Comments Depression Genital HSV Social History Tobacco Use Types Packs/Day Years Used Date Smoking Tobacco: Former Smokeless Tobacco: Never Alcohol Use Standard Drinks/Week Comments Yes 0 (1 standard drink = 0.6 oz pur e alcohol) frequently [facility] Utilities Answer Date Recorded In the past 12 months has th e electric, gas, oil, or water company threatened to shut off services in your home? No 07/24/2024 Social Connection and Isolation Panel Answer Date Recorded In a typical week, how many times do you talk on the phone with family, friends, or neighbors? More than three times a week 07/24/2024 Frequency of Social Gatherin gs with Friends and Family Not on file 07/24/2024 How often do you attend chur ch or latter-day services? Never 07/24/2024 Do you belong to any clubs o r organizations such as sabianist groups, unions, fraternal or athletic groups, or school groups? No 07/24/2024 How often do you attend meet ings of the clubs or organizations you belong to? Never 07/24/2024 Are you , , di vorced, , never , or living with a partner? Patient declined 07/24/2024 Overall Financial Resource Strain (CARDIA) Answe r Date Recorded How hard is it for you to pa y for the very basics like food, housing, medical care, and heating? Not hard at all 07/24/2024 Hunger Vital Sign Answer Date Recorded Within the past 12 months, y ou worried that your food would run out before you got the money to buy more. Never true 07/25/19 25 Within the past 12 months, t he food you bought just didn't last and you didn't have money to get more. Never true 07/24/2024 PRAPARE - Transportation Answer Date Re corded In the past 12 months, has l ack of transportation kept you from medical appointments or from getting medications? No 03/2024 In the past 12 months, has l ack of transportation kept you from meetings, work, or from getting things needed for daily living? No 07/24/2024 Housing Stability Vital Sign Answer Slava e Recorded In the last 12 months, was t here a time when you were not able to pay the mortgage or rent on time? No 07/24/2024 In the past 12 months, how m any times have you moved where you were living? 0 07/24/2024 At any time in the past 12 m [facility], were you homeless or living in a usp (including now)? No 07/24/2024 Personal Safety Answer Date Recorded Have you ever been in or are you currently in a harmful physical or emotional relationship or is someone making you feel afraid or unsafe? 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 Gender Identity Not on file Sexual Orientation Not on file Obstetrics History Last Filed Vital Signs Vital Sign Reading Time Taken Comments Blood Pressure 140/85 07/24/2024 12:06 PM CDT Pulse 74 07/24/2024 11:42 AM CDT Temperature 36.4 C (97.5 F) 07/24/2024 7:38 AM CDT Respiratory Rate 16 07/23/2024 10:29 PM CDT Oxygen Saturation 100% 07/24/2024 11:42 AM CDT Inhaled Oxygen Concentration - - Weight 71.8 kg (158 lb 4.6 oz) 07/23/2024 2:36 P M CDT Height 167.6 cm (5' 6) 07/23/2024 2:36 PM CDT Body Mass Index 25.55 07/23/2024 2:36 PM CDT Plan of Treatment Health Maintenance Due Date Last Done Comments Breast Cancer Screening-Mammogram 1960 Depression Screening 1960 Hepatitis C Screening 1960 Hepatitis B Screening 1979 Regular Well Visit/Exam 18-64 1979 Zoster Vaccine (1 of 2) 2011 Colon Cancer Screening-Colonoscopy 05/17/2023 05/16/2013 Covid-19 Vaccine (3 - season) 2024 05/04/2020, 04/07/2020 Influenza Vaccine (#1) 2024 , 11/04/2018, 11/29/2017, Additional history exists DTaP/Tdap/Td Vaccine (2 - Td or Tdap) 10/07/2030 10/07/2020 Pneumococcal vaccine <65 Aged Out No longer eligible based on patient's age to complete this topic Procedures Procedure Name Priority Date/Time Associated Diagnosis Comments COLONOSCOPY 05/16/2013 12:00 AM CDT from Last 3 Months or Most Recently Relevant to Health Maintenance Results * COLONOSCOPY (05/16/2013 12:00 AM CDT) Anatomical Region Laterality Modality Other Narrative 05/16/2013 12:00 AM CDT Ordered by an unspecified provider. Procedure Note ProviderAdeola MD - 05/16/2013 12:00 AM CDT PROCEDURE REPORT Patient: AB SANTOS Account: [id number] Room No: : 1960 Patient Type: SDS [...] Physical exam today is that of well-developed, [id number]-uwax-old female in no acute distress. She is [...] PHYSICIAN: Jose Alejandro Collazo M.D. INSTRUMENT USED: [employer] video endoscope. MEDICATIONS: Per anesthesia. FINDINGS: Colonoscope [...] Post-sedation instructions. 2. High fiber diet. 3. [employer] screening recommendations for colorectal disease [...] [place] For more information, please contact: [phone] * Full Code (Latest Code Status on File) Date Activated Date Inactivated Comments 07/23/2024 2:02 PM 07/24/2024 9:00 PM Care Teams Payroll Associate Relationship Specialty Start Date End Date Jayy Marquez MD PCP - General 10/07/20
== END 2024-11-27 15:44 | disposition home or self-care (01) ==
PROVIDERS: PCP Family Medicine; Visit Provider Plastic Surgery
DX: M65.332 Trigger finger, left middle finger (principal)
CPT/HCPCS: 73130

== ENCOUNTER 2024-12-06 08:18 | Outpatient (CLI) | payer BC, SELFPAY ==
--- OUTSIDE RECORDS SUMMARY | 2024-12-06 08:36 | XMS_ITS | Clinical Summary ---
Author Organization [facility] [place] [address] Address [address] [place] [address] Care Team Providers Care Debit Agent Name Role Phone Jayy Marquez MD Primary Care Provider [phone] [phone] Allergies No known active allergies Medications estradioL [...] = 0.6 oz pur e alcohol) frequently [facility] Utilities Answer Date Recorded In the [...] often do you attend chur ch or holiness services? Never 07/24/2024 Do you belong to any clubs o r organizations such as mandaeism groups, unions, fraternal or athletic groups, or [...] any time in the past 12 m [facility], were you homeless or living in a fpc (including now)? No 07/24/2024 Personal Safety Answer Date Recorded Have you ever been in or are you currently in a harmful physical or emotional relationship or is someone making you feel afraid or unsafe? 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 She is [...] PHYSICIAN: Jose Alejandro Collazo M.D. INSTRUMENT USED: [employer] video endoscope. MEDICATIONS: Per anesthesia. FINDINGS: Colonoscope [...] Post-sedation instructions. 2. High fiber diet. 3. [place] [employer] Society screening recommendations for colorectal disease [...] Advance Directives For more information, please contact: [phone] * Full Code (Latest Code Status on File) Date Activated Date Inactivated Comments 07/23/2024 2:02 PM 07/24/2024 9:00 PM Care Teams Debit Agent Relationship Specialty Start Date End Date Jayy Marquez MD PCP - General 10/07/20
[2024-12-06 12:53] LABS: Hematocrit 42.6 % (37.0-47.0); Hemoglobin 13.9 g/dL (12.0-15.0); Immature Granulocyte Percent A 0.2 % (0-0.5); Lymphocytes Absolute Auto 1.35 K/mm3 (0.9-3.2); Mean Corpuscular HGB Conc 32.6 g/dl (32-36); Mean Corpuscular Hemoglobin 32.3 pg (26-34); Mean Corpuscular Volume 98.8 fl (80-100); Nucleated Red Blood Cells Absolute Auto 0.000 K/mm3 (0.0-0.012); Nucleated Red Blood Cells Perc 0.0 % (0.0-0.2); Platelet Count Result 303 k/mm3 (150-375); Red Blood Count 4.31 M/mm3 (4.2-5.4); White Blood Count 5.8 K/mm3 (4.5-10.0)
[2024-12-06 18:23] LABS: Hemoglobin A1C 5.8 % (<5.7)
== END 2024-12-06 08:19 | disposition home or self-care (01) ==
LOC: ANHGOSHLAB 08:21
PROVIDERS: PCP Family Medicine; Visit Provider Family Medicine
DX: E03.9 Hypothyroidism, unspecified (principal); R74.8 Abnormal levels of other serum enzymes; Q43.3 Congenital malformations of intestinal fixation; G56.02 Carpal tunnel syndrome, left upper limb
CPT/HCPCS: 36415; 83036; 85025

== ENCOUNTER 2025-01-16 08:27 | Outpatient (CLI) | payer BC, SELFPAY ==
--- NOTE | ~2025-01-16 | DEXA_ITS ---
Bone Density Report Name: AB MALCOLM Age: 64 Sex: Female Ethnicity: White Date of : 1960 Indication: postmenopausal; screening for osteoporosis; parental hip fracture; inflammatory bowel disease; hysterectomy; Referring Provider: KARY NAYAK Study: Bone densitometry was performed. Exam Date: January 16, 2025 Accession number: [id number] Bone Density: Region BMD T-score Z-score Classification AP Spine(L1-L4) 0.896 -1.4 0.3 Osteopenia Femoral Neck (Left) 0.595 -2.3 -0.8 Osteopenia Total Hip (Left) 0.937 0.0 1.1 Normal Femoral Neck (Right) 0.707 -1.3 0.2 Osteopenia Total Hip (Right) 0.967 0.2 1.4 Normal Femoral Neck Mean 0.651 -1.8 -0.3 Osteopenia Total Hip Mean 0.952 0.1 1.2 Normal World Health Organization criteria for BMD impression classify patients as: Normal (T-score at or above -1.0), Osteopenia (T-score between -1.0 and -2.5), or Osteoporosis (T-score at or below -2.5). 10-year Fracture Risk(1): Major Osteoporotic Fracture 21% Hip Fracture 2.0% Reported Risk Factors: [place] (), Neck BMD=0.595, BMI=25.7, parental fracture (1) FRAX(R) Version 3.08. Fracture probability calculated for an untreated patient. Fracture probability may be lower if the patient has received treatment. Clinical Information Provided by Patient: Parent has had a hip fracture Has the following medical conditions: Inflammatory bowel diseases, Hysterectomy Patient maximum height was 65.0 Menopause Age: 51 No regular weight bearing exercise Does not regularly consume dairy products Drinks caffeinated beverages Onset of menses at age 15 Number of children 1 Impression: The patient has low bone mass, based on the Left Femoral Neck T-score. The patient has risk factors, including: parental hip fracture. Discussion: BONE DENSITY IS LOW AT ONE OR MORE SKELETAL SITES. This patient's lowest T-score is low at one or more skeletal sites. It meets the World Health Organization's (WHO) criteria for ?low bone mass? (T-score between -1.0 and -2.5). The patient's 10-year risk of fracture as calculated by FRAX is less than the threshold where pharmacological therapy is recommended by the National Osteoporosis Foundation (NOF). However, all treatment decisions require clinical judgment and consideration of individual patient factors, including patient preferences, comorbidities, previous drug use, risk factors not captured in the FRAX model (e.g., frailty, falls, vitamin D deficiency, increased bone turnover, interval significant decline in bone density) and possible under or overestimation of fracture risk by FRAX. The patient should follow a healthful lifestyle (good nutrition with adequate calcium and vitamin D, and appropriate weight-bearing exercise). Follow-Up: Consider repeating this study in 2 to 3 years to reassess this patient's status, or sooner if there is some new clinical indication. Reported by: MEMO on 01/16/2025 8:53:00 AM. Reviewed, dictated and finalized at location A.
--- OUTSIDE RECORDS SUMMARY | 2025-01-16 08:34 | XMS_ITS | Clinical Summary ---
Author Organization [facility] [place] [address] Address [address] [place] [address] Care Team Providers Care Transportation Aid Name Role Phone Jayy Marquez MD Primary Care Provider [phone] [phone] Allergies No known active allergies Medications estradioL [...] = 0.6 oz pur e alcohol) frequently [facility] Utilities Answer Date Recorded In the [...] often do you attend chur ch or yarsani services? Never 07/24/2024 Do you belong to any clubs o r organizations such as moravian groups, unions, fraternal or athletic groups, or [...] any time in the past 12 m [facility], were you homeless or living in a penitentiary (including now)? No 07/24/2024 Personal Safety Answer Date Recorded Have you ever been in or are you currently in a harmful physical or emotional relationship or is someone making you feel afraid or unsafe? Denies 07/23/2024 Comments No Sex and Gender Information Value Date Recorded Sex Assigned at Not on file Legal Sex Female 7:26 PM NAVAL ARCHITECT Gender Identity Not on file Sexual Orientation [...] CDT PROCEDURE REPORT Patient: AB SANTOS Account: [id number] Room No: : 1960 Patient Type: SDS [...] Physical exam today is that of well-developed, [id number]-swif-old female in no acute distress. She is [...] PHYSICIAN: Jose Alejandro Collazo M.D. INSTRUMENT USED: [employer] video endoscope. MEDICATIONS: Per anesthesia. FINDINGS: Colonoscope [...] Post-sedation instructions. 2. High fiber diet. 3. [place] Cancer Society screening recommendations for colorectal disease [...] Most Recently Relevant to Health Maintenance [facility] [place] Advance Directives For more information, please contact: [phone] * Full Code (Latest Code Status on File) Date Activated Date Inactivated Comments 07/23/2024 2:02 PM 07/24/2024 9:00 PM Care Teams Transportation Aid Relationship Specialty Start Date End Date Jayy Marquez MD PCP - General 10/07/20
== END 2025-01-16 08:28 | disposition home or self-care (01) ==
PROVIDERS: PCP Family Medicine; Visit Provider Obstetrics & Gynecology
DX: Z78.0 Asymptomatic menopausal state (principal); M85.89 Other specified disorders of bone density and structure, multiple sites
CPT/HCPCS: 77080

== ENCOUNTER 2025-01-16 10:19 | Outpatient (CLI) | payer BC, SELFPAY ==
--- NOTE | 2025-01-16 11:30 | NEURO_ITS ---
Impression: # Complains of numbness of left hand. Known to have Dupuytren Contracture. ? # Left Carpal Tunnel Syndrome. ? # No ulnar neuropathy. ? # Mildly abnormal needle/EMG exam with subtle neurogenic changes in left APB. Nerve Conduction Studies ?Stim Site NR Peak (ms) P-T Amp (?V) Site1 Site2 Delta-P (ms) Dist (cm) Danie (m/s) Left Median Anti Sensory (2-3nd Digit) Wrist ? 4.3 63.5 Wrist 2-3nd Digit 4.3 14.0 33 Wrist ? 4.4 18.4 Wrist 2-3nd Digit 4.3 14.0 33 Left Radial Anti Sensory (Base 1st Digit) Wrist ? 1.7 54.6 Wrist Base 1st Digit 1.7 0.0 Left Ulnar Anti Sensory (5th Digit) Wrist ? 2.5 12.7 Wrist 5th Digit 2.5 14.0 56 ?Stim Site NR Onset (ms) O-P Amp (mV) Site1 Site2 Delta-0 (ms) Dist (cm) Danie (m/s) Left Median Motor (Abd Poll Brev) Wrist ? 4.6 3.8 Elbow Wrist 5.2 29.0 56 Elbow ? 9.8 6.4 Left Ulnar Motor (Abd Dig Minimi) Wrist ? 2.2 7.1 A Elbow Wrist 5.3 29.0 55 A Elbow ? 7.5 6.6 B Elbow Wrist 4.1 22.0 54 B Elbow ? 6.3 6.4 F Wave Studies ?NR F-Lat (ms) L-R F-Lat (ms) Left Median (Mrkrs) (Abd Poll Brev) ? 28.91 Left Ulnar (Mrkrs) (Abd Dig Min) ? 27.34 Electromyography ?Side Muscle Nerve Root Ins Act Fibs Amp Dur Recrt Comment Left 1stDorInt Ulnar C8-T1 Nml Nml Nml Nml Nml Left Ext Indicis Radial (Post Int) C7-8 Nml Nml Nml Nml Nml Left Ext Digitorum Radial (Post Int) C7-8 Nml Nml Nml Nml Nml Left BrachioRad Radial C5-6 Nml Nml Nml Nml Nml Left PronatorTeres Median C6-7 Nml Nml Nml Nml Nml Left Abd Poll Brev Median C8-T1 Nml Nml Decr >12ms +1 Left ABD Dig Min Ulnar C8-T1 Nml Nml Nml Nml Nml Left FlexPolLong Median (Ant Int) C7-8 Nml Nml Nml Nml Nml Left Abd Poll Long Radial (Post Int) C7-8 Nml Nml Nml Nml Nml
--- OUTSIDE RECORDS SUMMARY | 2025-01-16 11:36 | XMS_ITS | Clinical Summary ---
Author Organization [facility] [place] [address] Address [address] [place] [address] Care Team Providers Care Cocoa Mill Operator Name Role Phone Jayy Marquez MD Primary Care Provider [phone] [phone] Allergies No known active allergies Medications estradioL [...] = 0.6 oz pur e alcohol) frequently [facility] Utilities Answer Date Recorded In the past [...] often do you attend chur ch or mormonism services? Never 07/24/2024 Do you belong to any clubs o r organizations such as bahai groups, unions, fraternal or athletic groups, or [...] any time in the past 12 m 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 She is [...] PHYSICIAN: Jose Alejandro Collazo M.D. INSTRUMENT USED: [employer] video endoscope. MEDICATIONS: Per anesthesia. FINDINGS: Colonoscope [...] Post-sedation instructions. 2. High fiber diet. 3. [place] Cancer Society screening recommendations for colorectal disease [...] Most Recently Relevant to Health Maintenance [facility] [place] Advance Directives For more information, please contact: [phone] * Full Code (Latest Code Status on File) Date Activated Date Inactivated Comments 07/23/2024 2:02 PM 07/24/2024 9:00 PM Care Teams Cocoa Mill Operator Relationship Specialty Start Date End Date Jayy Marquez MD PCP - General 10/07/20
== END 2025-01-16 10:20 | disposition home or self-care (01) ==
LOC: ANHNEURO 10:22
PROVIDERS: PCP Family Medicine; Visit Provider Plastic Surgery
DX: G56.02 Carpal tunnel syndrome, left upper limb (principal)
CPT/HCPCS: 95886; 95909

== ENCOUNTER 2025-02-07 04:09 | Day surgery (SDC) | payer BC, SELFPAY ==
[2025-02-05 08:55] VITALS: BMI 24.2
--- NOTE | 2025-02-05 09:05 | SUR.PREOP ---
[facility] has started construction of its new state of the art ER which will open Spring 2026. With this, we anticipate parking may be a challenge for some our surgical patients and families. Parking spaces are limited but are available for all Surgical, obstetrics, and ER patients sharing this lot. If you arrive and find you are having a hard time finding a parking space, please note that we understand the challenges, please drive around the hospital and park near Hospital Entrance 1. When you enter this entrance, you can ask a volunteer to direct or take you back to the surgical waiting area to check in. We appreciate everyone?s understanding of these expected challenges while we build for your future. Report to the Outpatient Waiting Room, entrance under the green pavilion located off [address], at time 10:45a.m. on date 02/07/2025. Planned Procedure Time: 12:45p.m.? Time changes happen often and if your time is changed the preop area will call you the afternoon before. - You and your visitor will be asked to self-screen and do not enter if you have any COVID symptoms. Please call surgeon if you need to reschedule. - A mask is optional within the hospital at this time. Patients may have clear liquids (water, carbonated beverages, clear teas, apple juice) until 3 hours prior to surgery with a maximum of 20 ounces. - No food from midnight until time of surgery and no smoking, or chewing tobacco (or any form of nicotine). No chewing gum, candy or mints. Take only the following medications with a SIP of water on the morning of surgery: Valacyclovir DO NOT STOP ANY OF YOUR OTHER PRESCRIPTION MEDICATIONS PRIOR TO SURGERY EXCEPT THE FOLLOWING Hold all vitamins and supplements for 3 days per anesthesiologist. Medications to discontinue per physician N/A Date to take last dose N/A Please no make-up, nail dominican, hairspray, perfume, deodorant, or body powder the day of surgery.? No jewelry (including any body piercings) or valuables the day of surgery, leave them at home.? Please take a shower or bath the night before, or the morning of, surgery with an antibacterial soap.? Wear comfortable, loose fitting clothing.? Children are encouraged to wear pajamas. - Jewelry must be removed prior to entering the operating room.? Rings and piercings that are not removed may be cut off. - The hospital will not accept responsibility for valuables.? - Please leave all valuables, including medications, at home the day of surgery. If you are going home after surgery, a licensed straddle truck driver must drive you home.? - NO public transportation without another adult if you receive anesthesia. - We recommend that an adult stay with you for 24 hours following discharge. - We also recommend that you do not drive, make important decision, drink alcoholic beverages, or take any drugs that were not prescribed by your health care provider for at least 24 hours after your discharge time. For Pediatric surgeries, we recommend two adults accompany the child home. Follow any additional instructions given to you from your surgeon. Telephone instructions given to Franny Santos and asked if any additional questions and then verbalized understanding. Patient advised to call surgeon office or pre surgery nurse liaison [phone] if any additional questions.
--- OUTSIDE RECORDS SUMMARY | 2025-02-07 04:11 | XMS_ITS | Clinical Summary ---
Author Organization [facility] [place] [address] Address [address] [place] [address] Care Team Providers Care Shipping Supervisor Name Role Phone Jayy Marquez MD Primary Care Provider [phone] [phone] Allergies No known active allergies Medications estradioL [...] = 0.6 oz pur e alcohol) frequently [facility] Utilities Answer Date Recorded In the past [...] often do you attend chur ch or islam services? Never 07/24/2024 Do you belong to any clubs o r organizations such as shinto groups, unions, fraternal or athletic groups, or [...] any time in the past 12 m [facility], were you homeless or living in a residential (including now)? No 07/24/2024 Personal Safety Answer Date Recorded Have you ever been in or are you currently in a harmful physical or emotional relationship or is someone making you feel afraid or unsafe? Denies 07/23/2024 Comments No Sex and Gender Information Value Date Recorded Sex Assigned at Not on file Legal Sex Female 7:26 PM CERTIFIED WELLNESS PROGRAM COORDINATOR Gender Identity Not on file Sexual Orientation [...] CDT PROCEDURE REPORT Patient: AB SANTOS Account: [id number] Room No: : 1960 Patient Type: SDS [...] Physical exam today is that of well-developed, skvg-qfgijjmwe01-udde-old female in no acute distress. She is [...] PHYSICIAN: Jose Alejandro Collazo M.D. INSTRUMENT USED: [employer] video endoscope. MEDICATIONS: Per anesthesia. FINDINGS: Colonoscope [...] Post-sedation instructions. 2. High fiber diet. 3. [place] Cancer Society screening recommendations for colorectal disease [...] Most Recently Relevant to Health Maintenance [facility] [place] Advance Directives For more information, please contact: [phone] * Full Code (Latest Code Status on File) Date Activated Date Inactivated Comments 07/23/2024 2:02 PM 07/24/2024 9:00 PM Care Teams Shipping Supervisor Relationship Specialty Start Date End Date Jayy Marquez MD PCP - General 10/07/20
--- NOTE | 2025-02-07 06:55 | WPDHPUPDATE1 ---
History and Physical Update Update Date/Time: 02/07/25 06:55 Patient seen and examined in pre-operative holding area. No interval change in medical history or symptoms. Patient recalls previous discussion of benefits and alternatives to procedure. Continues to desire to proceed with Left Middle and ring finger a1 brando release, left small finger fasciectomy, left palmar fasciectomy, left index finger lesion excision and left endoscopic possible open carpal tunnel release . Reviewed procedure, post-op expectations and risks including but not limited to bleeding, infection, injury to tendon/nerve/vessel, decreased hand function, stiffness, RSD, no change or worsening of symptoms, recurrence, incomplete release. I discussed the possible use of assistants and their participation in the case. Patient stated understanding and signed the consent form wishing to proceed.
--- NOTE | 2025-02-07 06:56 | P.OP_ITS ---
Procedure Note - Detailed Date of Procedure 02/07/25 Pre-op Diagnosis lt middle & ring finger Trigger finger, left small finger dupuytren and palmar contracure, left index finger mass and left CTS Post-op Diagnosis Same Procedure Performed L MF and RF a1 brando release, left small finger fasciectomy, left palmar fasciectomy, left index finger lesion excision and left ectr Surgeon Magdy Mccarthy MD Agriculture Laboratory Technician yina olvia pa-c Anesthesia MAC Description of Procedure INFORMED CONSENT: The patient was seen and examined and marked in the pre-op area.? The patient signed the consent form. PROCEDURE IN DETAIL:The patient taken back to OR on the stretcher in supine position. Time out performed with anesthesia, surgeon and staff agreeing on patient's name site and surgery to be performed SCDs were placed on the lower extremities and inflated. A tourniquet was placed on {left} upper extremity and antibiotics given IV After anesthesia administered sedation I injected {8}cc 1%lido and 0.5% marcaine plain at the operative sites The?{left upper extremity}?was prepped and draped in sterile fashion the??{left upper extremity} was? exsanguinated with Esmarch bandage and tourniquet inflated to 250mmHg I made a transverse incision in the {left} volar distal wrist crease through skin and dermis with 15 blade scalpel.? Littler scissors spread down to antebrachial fascia. A small incision was made in antebrachial fascia allowing access to Carpal tunnel. I proceeded with sequential dilation staying in line with the ring finger and hugging the hook of the hamate.? I then used the synovial elevator to free any adhesions from the underside of the transverse carpal ligament. Next I was able to insert the Microaire endoscopic carpal tunnel device with direct visualization of the transverse fibers on the monitor and proceeded with complete segmental retrograde release of the ligament in its entirety.? I irrigated with normal saline and closed with 4-0 monocryl for dermis and subcuticular closure. Next I proceeded with making a longitudinal incision over the left middle finger A1 brando through skin and dermis with a 15 blade scalpel. Littler scissors were used to spread down to the A1 brando. The A1 brando was identified and initially incised with 15 blade scalpel. Littler scissors were used to spread above and below it proximally and distally and completed the transection entirely. Ragnell retractor was used withdrawal the FDS and FDP tendons for inspection. The tendons were free of masses and synovitis and gliding smoothly in the sheath without triggering or crepitus. I irrigated with normal saline and closed with 4-0 chromic. Next I proceeded with making a longitudinal incision over the left ring finger A1 brando through skin and dermis with a 15 blade scalpel. Littler scissors were used to spread down to the A1 brando. The A1 brando was identified and initially incised with 15 blade scalpel. Littler scissors were used to spread above and below it proximally and distally and completed the transection entirely. Ragnell retractor was used withdrawal the FDS and FDP tendons for inspection. The tendons were free of masses and synovitis and gliding smoothly in the sheath without triggering or crepitus. I irrigated with normal saline and closed with 4-0 chromic. Next I turned my attention to the left small finger were proceeded with making a Jey incision over the Dupuytren's cord going across the PIP joint through skin and dermis with 15 blade scalpel. Fifteen blade scalpel was used to elevate skin flaps proximally and distally exposing the Dupuytren's cord resulting in PIP joint contracture. Littler scissors were used to spread around the cord circumferentially protecting the neurovascular bundle. I transected the cord proximally with 15 blade scalpel and proceeded with anterograde dissection of the cord and excision until I was able to achieve full PIP joint extension. Irrigated with normal saline and closed with 4-0 chromic. Next I turned my attention to the separate Dupuytren's cord in the palm proximal to the ring finger where I made an incision over the cord going obliquely across palmar flexion crease through skin and dermis with 15 blade scalpel. Fifteen blade scalpel was used to elevate my skin flaps. Littler scissor was used to dissect around the cord proximally near its origin. The cord was transected and I proceeded with anterograde dissection of the cord to release the palmar contracture. I irrigated with normal saline and closure with 4-0 chromic. Next I took my attention to the left index finger where I proceeded with making an elliptical incision around the symptomatic skin lesion through skin and dermis with 15 blade scalpel. The lesion was excised and then after irrigation closed with 4-0 chromic. A dressing of Dermabond for wrist and xeroform for palm/digits, 4x4, guevara, and a volar splint was applied for patient safety, security, and comfort and secured with an nancy bandage after the tourniquet was let down noting the hand was warm and well perfused. The patient was then awaken from anesthesia and transferred to the recovery room in stable condition.? Complications - none EBL- 0cc Disposition - home in stable condition Yina Oliva PA-C was essential for positioning, retraction, closure and dressing placement. [facility] [place] B[place] Surgery - Charge Forward: Surgery Billing ([id number], [id number] same for yina adding )
[2025-02-07 10:58] VITALS: BP 152/76; PULSE 86; TEMP 36.6; O2SAT 97; BMI 25.2
[2025-02-07] MEDS: LACTATED RINGERS 1,000 ML 30 ML IV CONT (11:04)
[2025-02-07] MEDS: ACETAMINOPHEN 500 MG TABLET 1000 MG PO (11:04)
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
[2025-02-07] MEDS: ceFAZolin 2 GM in SODIUM CHLORIDE 0.9% IV 50 ML 100 ML IVPB (12:06)
[2025-02-07] MEDS: LIDO 1%/EPINEPHRINE 1:100,000 50 ML VIAL 10 ML INFILTRATE (12:06)
[2025-02-07] MEDS: BUPivacaine HCL 0.5% 10 ML AMP INFILTRATE (12:23)
--- NOTE | 2025-02-07 12:28 | S_PTH ---
PATIENT: Franny Santos LOC: [facility] U#:[id number] AGE/SX: 65/F ROOM: RE02/07/[address]: Magdy Mccarthy MD : 1960 BED: DIS: 02/07/2025 SPEC #: [id number] RECD: 02/07/25 13:27 STATUS: DAREK REYemi #: [id number] SORAIDA: 02/07/25 12:[address]: Magdy Mccarthy DEPT: [facility] Surgical RECD BY: Alpa Whitehead ENTERED: 02/07/25 13:27 SP TYPE: Surgical OTHR DR: Jayy Marquez MD Tissues: A - Soft Tissue B - Soft Tissue C - Skin Procedures: Hematoxylin and Eosin Stain Gross and Microscopic Level 3 Gross and Microscopic Level 4
[2025-02-07] MEDS: BACITRACIN OINTMENT 15 GM TUBE 1 APPLIC TOPICAL (12:33)
[2025-02-07 12:55] VITALS: BP 114/49; PULSE 82; RESP 16; O2SAT 95
[2025-02-07 13:25] VITALS: BP 115/54; PULSE 82; RESP 16; O2SAT 97
[2025-02-07 13:40] VITALS: BP 141/74; PULSE 78; RESP 18
== END 2025-02-07 13:45 | disposition home or self-care (01) ==
PROVIDERS: PCP Family Medicine; Visit Provider Plastic Surgery
PROC: (CPT 26055; principal; 2025-02-07 12:15)
PROC: 01N54ZZ Release Median Nerve, Percutaneous Endoscopic Approach (ICD-10-PCS; CPT 29848; 2025-02-07 12:15)
DX: M65.332 Trigger finger, left middle finger (principal); M65.342 Trigger finger, left ring finger; M72.0 Palmar fascial fibromatosis [Dupuytren]; G56.02 Carpal tunnel syndrome, left upper limb; D23.62 Other benign neoplasm of skin of left upper limb, including shoulder; Z87.891 Personal history of nicotine dependence
CPT/HCPCS: 26055 ×2; 26123; 26121; 29848; 11420; 88304; 88305; J0690; A9270; J2003; J2004; J2250; J2405; J2704; J3010; J7120